=== PATIENT | female | born 1965 | race Two or more races ===

== ENCOUNTER 2018-10-12 05:08 | Day surgery (SDC) | payer OTHER ==
[2018-10-06 13:37] VITALS: BMI 29.2
[~2018-10-12 05:08] MED LIST: BUPIVACAINE HCL/PF 0.5% (5MG/ML) 10 ML VIAL IJ ONE
[2018-10-12] MEDS ORDERED: IBUPROFEN 600 MG TABLET (FP) PO PRN (08:16)
[2018-10-12] MEDS ORDERED: IBUPROFEN 800 MG/8 ML IJ IVPB PRN (08:16)
[2018-10-12] MEDS ORDERED: ACETAMINOPHEN 325 MG TABLET (FP) PO PRN (08:16)
--- NOTE | 2018-10-12 08:16 | HP ---
History & Physical Update - History History: No Change - Physical Physical: No Change - Assessment Assessment: No Change - Plan Plan: No Change (No change in HP)
[2018-10-12] MEDS ORDERED: LACTATED RINGERS SOLUTION 1,000 ML IV SCH (08:30)
[2018-10-12] MEDS ORDERED: MIDAZOLAM HCL 2 MG/2 ML SINGLE DOSE VIAL ONE ×2 (12:20→14:18)
[2018-10-12] MEDS ORDERED: DEXAMETHASONE SOD PHOSPHATE 4 MG/1 ML VIAL ONE ×2 (12:31→13:44)
[2018-10-12] MEDS ORDERED: fentaNYL CITRATE 250 MCG/5 ML VIAL ONE (12:32)
[2018-10-12] MEDS ORDERED: LIDOCAINE HCL/PF 2% SDV 5ML VIAL ONE (12:33)
[2018-10-12] MEDS ORDERED: ROCURONIUM BROMIDE 50 MG/5 ML VIAL ONE (12:33)
[2018-10-12] MEDS ORDERED: PROPOFOL 20 ML ONE (12:33)
[2018-10-12] MEDS ORDERED: ceFAZolin SODIUM 1 GM VIAL IVPB ONE (12:45)
[2018-10-12] MEDS ORDERED: ceFAZolin SODIUM 1 GM VIAL ONE (12:45)
[2018-10-12] MEDS ORDERED: PROMETHAZINE HCL 25 MG/1 ML VIAL IVPUSH PRN (13:18)
[2018-10-12] MEDS ORDERED: GLYCOPYRROLATE 0.2 MG/1 ML VIAL ONE (13:45)
[2018-10-12] MEDS ORDERED: NEOSTIGMINE METHYLSULFATE 0.5 MG/ML - 10 ML MDV ONE (13:45)
--- NOTE | 2018-10-12 14:19 | OP ---
Operative Note - Note: Operative Date: 10/12/18 Pre-Operative Diagnosis: Menorrhagia, sterilization Operation: Bilateral robotic Assisted laparoscopic salpingectomy, removal of foreign body (Essure) Findings: as dictated Implants: none Post-Operative Diagnosis: Same as Pre-op Surgeon: Rashida Tamayo Supervisor Gear Repair: Yadiel Easton (Dustin Crawford PA-C) Anesthesiologist/FOOD CHEMIST: Ozzy Friedman Anesthesia: General, Local (20cc .5% Marcaine injected to incision sites at completion of case) Specimens Removed: B/L uterine tubes, foreign body (Essure) Estimated Blood Loss (mls): 2 (ml) Drains & Tubes with Location: none Fluid Volume Replaced (mls): 1 (l) Operative Report Dictated: Yes
--- NOTE | 2018-10-12 14:20 | SURG ---
Surgery Switchboard Operator Receptionist Note Switchboard Operator Receptionist: Yadiel Easton PA-C Date of Service: 10/12/18 Diagnosis: Menorrhagia, sterilization Procedure: Bilateral robotic Assisted laparoscopic salpingectomy, removal of foreign body (Essure) I was present for the entirety of the operative procedure. For further detail, please refer to operative report. Visit type - Case Type Case Type: Scheduled - Emergency Emergency Visit: No - New patient This patient is new to me today: Yes Date on this admission: 10/12/18 - Critical Care Critical Care patient: No
[2018-10-12] MEDS ORDERED: IBUPROFEN 800 MG/8 ML IJ IVPB ONE ×2 (15:00→15:01)
[2018-10-12 17:34] VITALS: TEMP 98
[2018-10-12 18:03] VITALS: BP 133/80; PULSE 94
--- NOTE | 2018-10-12 20:09 | OP ---
DATE OF OPERATION: 10/12/2018 PREOPERATIVE DIAGNOSES: Voluntary sterilization, pelvic pain, foreign body in the uterus, menorrhagia, and dysmenorrhea. SURGERY: Robotic, laparoscopic removal of Essure as well as bilateral salpingectomy, hysteroscopic myomectomy, and suction dilatation and curettage. SURGEON: Rashida Tamayo MD OFFICE SYSTEMS TECHNOLOGY INSTRUCTOR: CLAYTON Crawford ANESTHESIA: General. ANESTHESIOLOGIST: Ozzy Friedman MD PROCEDURE: Patient was taken to the operating room, placed in dorsal lithotomy position, prepped and draped in usual sterile fashion. A timeout was performed in accordance with hospital regulation. Botello catheter was inserted into the bladder. Attention was then drawn to the umbilicus where an 8-mm umbilical incision was made. Veress needle was inserted into the cavity. Approximately 3-4 L of CO2 was insufflated into the cavity. Veress needle was then removed, and an 8-mm trocar was then inserted. Laparoscope and camera attached. Two trocars were placed on the right side parallel to the umbilical incision 8 mm apart each one and on the left 8 mm apart. Another incision was made, and 8-mm trocars were inserted, all under direct visualization. A 5-mm trocar was placed after 5-mm incision was made in the upper abdomen. AirSeal cannula was then inserted. Jobydui robot was side docked to the patient's bedside. Trocars were attached to robot The bipolar was placed on the left, and EndoShears and [place] were placed on the right. Tube was grasped on the left, and scissor was then used to cut the tube. Essure device was located and removal of the Essure device was done and bilateral salpingectomy was performed using bipolar forceps and EndoShears. Same procedure was repeated on the other side. Ovaries were noted to be normal. Essure devices were removed and submitted, and tubes were submitted. All instruments were then removed. The da Ivonne robot was then undocked from the patient's bedside, and all this was performed with the da Ivonne robot. Incisions were then closed after CO2 was removed. Trocars removed. Incisions were then closed in layers using 3-0 Vicryl suture. Attention was then drawn to the vagina where a speculum was placed in the vagina. Anterior lip of the cervix was grasped with a single-tooth tenaculum. Cervix was then dilated to accommodate the operative hysteroscope. A submucosal myoma was noted, and cutting of the myoma was done. After sufficient cutting of the myoma and removal with the polyp forceps of the particles, suction D&C was done. Cavity was noted to be improved. All instruments were removed. Patient had tolerated the procedure well. ESTIMATED BLOOD LOSS: 20 mL Freddie [id number] MTDD
--- NOTE | 2018-10-14 11:49 | PATH ---
Surgical Pathology Report Patient Name: SONIDO BOONE [facility]. Rec. #: [id number] /Age/Gender: 1965 (Age: 53) / F Account: [id number] Location: AMBULATORY SURG Taken: 10/12/2018 Received: 10/13/2018 Reported: 10/14/2018 Physicians: Rashida Tamayo M.D. Specimen(s) Received A: RIGHT FALLOPIAN TUBE B: LEFT FALLOPIAN TUBE C: FOREIGN BODY ESSURE WIRE D: SUBMUCOSAL MYOMA Clinical History Menorrhagia, salpingitis Final Diagnosis A. FALLOPIAN TUBE, RIGHT, ROBOTIC LAPAROSCOPIC SALPINGECTOMY: FALLOPIAN TUBE WITH FOCAL PLICAL THICKENING AND EOSINOPHILIC AMORPHOUS MATERIAL WITHIN LUMEN (INCLUDING FIMBRIATED END AND FULL LUMINAL PORTION). B. FALLOPIAN TUBE, LEFT, ROBOTIC LAPAROSCOPIC SALPINGECTOMY: FALLOPIAN TUBE WITH FOCAL PLICAL THICKENING (INCLUDING FIMBRIATED END AND FULL LUMINAL PORTION). C. FOREIGN BODY, ESSURE, REMOVAL: FOREIGN BODY MATERIAL (ESSURE). MACROSCOPIC DIAGNOSIS. D. SUBMUCOSAL MYOMA, HYSTEROSCOPIC MYOMECTOMY, DILATION AND CURETTAGE: WEAKLY PROLIFERATIVE ENDOMETRIUM. 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 SCANT ECTOCERVICAL SQUAMOUS MUCOSA. Electronically Signed Allegra Benites M.D. Gross Description A. Received in formalin labeled "right fallopian tube," is a 3.5 cm in length fimbriated fallopian tube. The outer surface is raymundo juarez and smooth. Sectioning reveals a white possible lesion within the fallopian tube lumen. [employer] System Admin sections are submitted in 2 cassettes as follows: 1-fimbria; 2-cross sections of fallopian tube. B. Received in formalin labeled "left fallopian tube," is a 4.8 cm in length fimbriated fallopian tube. The outer surface is raymundo juarez and smooth. Sectioning reveals an unremarkable lumen. [employer] System Admin sections are submitted in 2 cassettes as follows: 1-fimbria; 2-cross sections of fallopian tube. C. Received fresh labeled "foreign body Essure," are 5 tamayo metallic portions of coiled wire, consistent with portions of Essure ranging from 1.5-15.0 cm in length. No soft tissue is present. No sections are submitted, gross only. D. Received in formalin labeled "submucosal myoma," is a 3 g, 3.5 x 3.3 x 0.4 cm aggregate of raymundo, firm to rubbery portions of tissue admixed with blood clot, consistent with morcellated myoma. The specimen is entirely submitted in 2 cassettes. 10/13/2018 [email or web address]/13/[email or web address]
== END 2018-10-12 18:17 | disposition home or self-care (01) ==
LOC: JASUSAT 05:08
PROVIDERS: ATTEND Obstetrics & Gynecology
PROC: 0UB74ZZ Excision of Bilateral Fallopian Tubes, Percutaneous Endoscopic Approach (ICD-10-PCS; principal; 2018-10-12 11:00)
PROC: 0UB98ZZ Excision of Uterus, Via Natural or Artificial Opening Endoscopic (ICD-10-PCS; 2018-10-12 11:00)
PROC: 0UDB8ZX Extraction of Endometrium, Via Natural or Artificial Opening Endoscopic, Diagnostic (ICD-10-PCS; 2018-10-12 11:00)
DX: Z30.2 Encounter for sterilization (principal); N92.0 Excessive and frequent menstruation with regular cycle; N94.6 Dysmenorrhea, unspecified; D25.0 Submucous leiomyoma of uterus; D57.1 Sickle-cell disease without crisis
CPT/HCPCS: 36415; 84703; 86850; 86900; 86901; 88300-TC; 88302-TC; 88305-TC; 94760

== ENCOUNTER 2024-04-19 18:51 | Emergency (ER) | payer BC, OTHER ==
[2024-04-19 19:00] VITALS: BP 169/90; PULSE 83; RESP 16; TEMP 98; BMI 31.1
[2024-04-19 20:25] LABS: BASO % 0.6 % (0-2.0); EOS % 1.4 % (0-4.5); HEMATOCRIT 41.7 % (32.4-45.2); HEMOGLOBIN 14.5 GM/dL (10.7-15.3); LYMPH % 30.7 % (8-40); MCH 29.5 pg (25.7-33.7); MCHC 34.7 g/dl (32.0-36.0); MEAN PLT VOLUME 8.2 fl (7.5-11.1); MONO % 7.7 % (3.8-10.2); NEUT % 59.6 % (42.8-82.8); PLATELET COUNT 247 10^3/uL (134-434); RDW 13.9 % (11.6-15.6); WHITE BLOOD COUNT 9.1 K/mm3 (4.0-10.0)
[2024-04-19 20:37] LABS: URINE APPEARANCE CLEAR; URINE BILIRUBIN NEGATIVE (NEGATIVE); URINE COLOR YELLOW; URINE GLUCOSE (UA) NEGATIVE (NEGATIVE); URINE KETONE NEGATIVE (NEGATIVE); URINE LEUK ESTERASE NEGATIVE (NEGATIVE); URINE NITRITE NEGATIVE (NEGATIVE); URINE PROTEIN NEGATIVE (NEGATIVE); URINE UROBILINOGEN 0.2 mg/dL (0.2-1.0)
[2024-04-19 20:49] LABS: POTASSIUM 4.1 mmol/L (3.5-5.1)
[2024-04-19 20:52] LABS: ALBUMIN 3.7 g/dl (3.4-5.0); BLOOD UREA NITROGEN 18.3 mg/dL (7-18); CALCIUM 8.7 mg/dL (8.5-10.1)
[2024-04-19 20:55] LABS: CREATININE 1.1 mg/dL (0.55-1.3)
[2024-04-19 20:57] LABS: BILIRUBIN,TOTAL 0.4 mg/dL (0.2-1)
== END 2024-04-19 23:02 | disposition home or self-care (01) ==
LOC: JER 18:51
DX: R10.9 Unspecified abdominal pain (principal); M54.9 Dorsalgia, unspecified; G89.29 Other chronic pain
CPT/HCPCS: 36415; 74176-TC; 80053; 81003; 85025; 87086; 99284-25